=== PATIENT | male | born 1965 | race Caucasian/White ===

== ENCOUNTER 2022-01-06 12:17 | Emergency (ER) | payer BC ==
[~2022-01-06] VITALS: Ht 188 cm; Wt 109.0 kg
[2022-01-06] MEDS: MORPHINE SULFATE 4 MG/ML DISP.SYRIN. IV ONE ×2 (12:36→12:54)
[2022-01-06] MEDS: ASPIRIN CHEWABLE 81 MG TABLET. PO ONE (12:37)
[2022-01-06] MEDS: ONDANSETRON PF 4 MG/2 ML VIAL. IVP ONE (12:37)
[2022-01-06] MEDS ORDERED: HEPARIN for IV BOLUS 10,000 UNIT/10 ML VIAL. ONE (12:38)
--- NOTE | 2022-01-06 12:38 | PHYS DOC ---
General Adult EDM: Chief Complaint: CHEST PAIN HPI: HPI: Patient is a 56-year-old male with chest pain. Pain started last night. It is a pressure-like sensation in the center of his chest. The pain got much worse this morning. Patient has not not been nauseated and has not thrown up. He feels a little short of breath right now but has not until just a few minutes ago. No sweating. He does not have a history of heart disease that he is aware of. No illicit drug use. He does have a history of high cholesterol and type 2 diabetes. Review of Systems: Review of Systems: Constitutional: Denies fever Eyes: Denies change in visual acuity or eye pain HENT: Denies sore throat Respiratory: Denies shortness of breath Cardiovascular: Reports chest pain GI: Denies abd pain : Denies dysuria Musculoskeletal: Denies back or extremity injury Integument: Denies rash or skin lesions Neurologic: Denies headache, focal weakness or sensory changes All other systems were reviewed and found to be within normal limits, except as documented in this note. Current Medications: Current Meds: Current Medications Medications (Trade) Dose Ordered Sig/Meaghan Start Time Stop Time Status Last Admin Dose Admin Aspirin (Aspirin Chewable) 324 mg 1X ONCE 01/06/22 12:30 01/06/22 12:31 UNV Heparin Sodium (Porcine) (Heparin Sodium) 4,000 unit 1X ONCE 01/06/22 12:30 01/06/22 12:31 UNV Heparin Sodium/ Dextrose 250 ml @ 8.4 mls/hr CONT PRN 01/06/22 12:30 UNV Morphine Sulfate (Morphine 4mg Syringe) 4 mg 1X ONCE 01/06/22 12:30 01/06/22 12:31 UNV Nitroglycerin/ Dextrose 250 ml @ 0 mls/hr 1X ONCE 01/06/22 12:30 01/06/22 12:31 UNV Ondansetron HCl (Zofran) 4 mg 1X ONCE 01/06/22 12:30 01/06/22 12:31 UNV Allergies: Allergies: Allergies Coded Allergies Type Severity Reaction Last Updated Verified No Known Drug Allergies 01/06/22 No Physical Exam: PE: Constitutional: Well developed, well nourished, no acute distress, non-toxic appearance. HENT: Normocephalic, atraumatic, bilateral external ears normal, mucosa moist, nose normal. Eyes: EOMI, conjunctiva normal, no discharge. Neck: Normal range of motion, supple, no stridor, no meningeal signs. Cardiovascular: Regular rate and rhythm Lungs & Thorax: Bilateral breath sounds clear to auscultation Abdomen: Soft, no tenderness or obvious masses Skin: Warm, dry, no erythema, no rash. Extremities: No tenderness, no cyanosis, no clubbing, ROM intact, no edema. Neurologic: Alert and oriented, normal motor function, normal sensory function, no focal deficits noted. Psychologic: Affect normal, judgement normal, mood normal. EKG: EKG: Twelve-lead EKG demonstrates a sinus rhythm with an overall rate of 92. MS interval is borderline at almost 200 ms. QRS and QT corrected are within normal limits. Patient has ST segment elevation in V1 and V2 2 to 3 mm above the baseline. Reciprocal depression in the inferior leads. [] Radiology/Procedures: Radiology/Procedures: [] Heart Score: C/O Chest Pain: Yes HEART Score for Chest Pain: HEART Score for Chest Pain Response (Comments) Value History Highly Suspicious [address] Depression 2 Age > 65 2 Risk Factors >3 Risk Factors or Hx CAD 2 Total 8 Risk Factors: Risk Factors: DM, Current or recent (<one month) smoker, HTN, HLP, family history of CAD, obesity. Risk Scores: Score 0 - 3: 2.5% MACE over next 6 weeks - Discharge Home Score 4 - 6: 20.3% MACE over next 6 weeks - Admit for Clinical Observation Score 7 - 10: 72.7% MACE over next 6 weeks - Early Invasive Strategies Course & Med Decision Making: Course & Med Decision Making Pertinent Labs and Imaging studies reviewed. (See chart for details) [] Is a 56-year-old male with chest pain and an EKG indicative of ST elevation myocardial infarction. I spoke with the nurses' association executive director on-call at [facility], patient be transferred there immediately for urgent cardiac cath. Condition at this time is guarded. Dragon Disclaimer: Dragon Disclaimer: This electronic medical record was generated, in whole or in part, using a voice recognition dictation system. Departure Departure: Impression: Primary Impression: STEMI (ST elevation myocardial infarction) Disposition: ADMITTED INPATIENT Condition: GUARDED Referrals: PCP,UNKNOWN (PCP) SARA GRACE MD Jan 06, 2022 12:38
[2022-01-06] MEDS: HEPARIN for IV BOLUS 10,000 UNIT/10 ML VIAL. IV ONE (12:40)
[2022-01-06 12:43] LABS: BASO # 0.1 x10^3/uL (0.0-0.2); BASO % 1 % (0-3); EOS # 0.1 x10^3/uL (0.0-0.7); EOS % 1 % (0-3); HEMATOCRIT 42.8 % (39.0-53.0); HEMOGLOBIN 14.8 g/dL (13.0-17.5); LYMPH # 1.5 x10^3/uL (1.0-4.8); LYMPH % 14 % (24-48); MEAN CORPUSCULAR HEMOGLOBIN 31 pg (25-35); MEAN CORPUSCULAR HGB CONC 35 g/dL (31-37); MEAN CORPUSCULAR VOLUME 89 fL (79-100); MONO # 0.8 x10^3/uL (0.0-1.1); MONO % 7 % (0-9); NEUT # 8.3 x10^3uL (1.8-7.7); NEUT % 77 % (31-73); PLATELET COUNT 274 x10^3/uL (140-400); RED BLOOD COUNT 4.83 x10^6/uL (4.30-5.70); RED CELL DISTRIBUTION WIDTH 13.7 % (11.5-14.5); WHITE BLOOD COUNT 10.8 x10^3/uL (4.0-11.0)
[2022-01-06] MEDS: HEPARIN 25,000UTS/250ML PREMIX 250 ML IV PRN ×2 (12:43→12:54)
[2022-01-06] MEDS: NITROGLYCERIN PREMIX 250 ML IV ONE (12:49)
[2022-01-06] MEDS ORDERED: MORPHINE SULFATE 10 MG/ML SYRINGE. ONE (12:51)
[2022-01-06 12:59] LABS: CALCIUM 9.4 mg/dL (8.5-10.1); CREATININE 1.8 mg/dL (0.7-1.3); GFR 39.1; POTASSIUM 3.7 mmol/L (3.5-5.1)
[2022-01-06 13:02] LABS: INFLUENZA A PATIENT NEGATIVE (NEGATIVE); INFLUENZA B PATIENT NEGATIVE (NEGATIVE)
--- NOTE | 2022-01-06 13:10 | RAD ---
EXAM: XR CHEST 1V 01/06/2022 12:47 PM CLINICAL INDICATION: Pain COMPARISON: None TECHNIQUE: AP view of the chest FINDINGS: Heart is normal in size. The lungs are hypoexpanded. There is no consolidation, pleural ef fusion, or pneumothorax. IMPRESSION: No acute cardiopulmonary abnormality. Electronically signed by: Ania Mauro MD (01/06/2022 1:07 PM) [id number]
[2022-01-06 13:11] LABS: ALBUMIN 4.1 g/dL (3.4-5.0); ALBUMIN/GLOBULIN RATIO 1.1 (1.0-1.7); TOTAL BILIRUBIN 0.7 mg/dL (0.2-1.0)
--- NOTE | 2022-01-08 21:46 | EKG ---
[address] [address] Test Date: 2022-01-06 Test Time: 12:24:14 Pat Name: WOODY NINO Department: Room: Gender: M [employer]: : 1965 Requested By: SARA GRACE Order Number: [id number] Reading MD: Kd Duncan Measurements Intervals [place] Rate: 92 P: AK: QRS: -25 QRSD: 88 T: 4 QT: 348 QTc: 435 Interpretive Statements SINUS RHYTHM LEFTWARD AXIS QRS(T) CONTOUR ABNORMALITY ST-T WAVE ELEVATION CONSISTENT WITH POSSIBLE ACUTE ANTEROSEPTAL INFARCT Electronically Signed On 01-10-2022 18:37:58 CDT by Kd Duncan
== END 2022-01-06 12:56 | disposition short-term general hospital (02) ==
LOC: ER 12:17
DX: I21.3 ST elevation (STEMI) myocardial infarction of unspecified site (principal); Z20.822 Contact with and (suspected) exposure to COVID-19
CPT/HCPCS: 36415; 71045; 80053; 83880; 84484; 85025; 87428; 93005; 96374; 96375; 96376; 99285; J1644; J2270; J2405; J3490